=== PATIENT | female | born 1965 | race Caucasian/White ===

== ENCOUNTER → 2016-03-27 | Outpatient (CLI) | payer OTHER ==
--- NOTE | 2016-03-27 15:41 | MA ---
Diagnostic Digital Mammogram Breast With iCAD Analysis Clinical Indications: Follow-up probably benign left breast microcalcifications. Technique: Craniocaudal and true lateral magnification views of the left breast are obtained. A true lateral is also performed. This examination is processed by the iCAD computer aided detection system. Comparison: July 13, 2015 and August 02, 2015. Breast density: Type C; Heterogeneously dense. Findings: CAD was reviewed. Magnification views confirm a small cluster of microcalcifications in the upper outer left breast. On the true lateral view several of the calcifications have a curvilinear c haracterization. Others are rounded and appear benign. The calcifications are more conspicuous on the true lateral views. The appearance of the calcification is suggestive of benign calcifications asso ciated with fibrocystic condition. Impression: Benign 6 month mammographic follow-up, BI-RADS 2. Recommendation: Resume routine mammographic screening in June 2016 as long as physical examination is negative. A verbal report was given to the patient. [facility] will send a result letter to the patient. 'S
== END ==
LOC: FIMAGING 15:00
PROVIDERS: ATTEND Internal Medicine
DX: R92.1 Mammographic calcification found on diagnostic imaging of breast (principal)
CPT/HCPCS: G0206

== ENCOUNTER → 2016-08-05 | Outpatient (CLI) | payer OTHER | LOC: BMCIMAGING 08:55 | PROVIDERS: ATTEND Internal Medicine | DX: M25.522 Pain in left elbow (principal) ==

== ENCOUNTER → 2017-12-18 | Outpatient (CLI) | payer OTHER | LOC: FIMAGING 10:38 | PROVIDERS: ATTEND Internal Medicine | DX: Z12.31 Encounter for screening mammogram for malignant neoplasm of breast (principal) ==